=== PATIENT | female | born 1980 | race African-American/Black ===

== ENCOUNTER 2017-04-29 06:19 | Inpatient (IN) ==
[2017-04-29] MEDS ORDERED: CITRIC ACID/SODIUM CITRATE 30 ML UDCUP PO ONE (06:34)
[2017-04-29] MEDS ORDERED: FAMOTIDINE 20 MG/2 ML VIAL IV ONE (06:34)
[2017-04-29] MEDS ORDERED: cefOXitin 2,000 MG in SYRINGE 1 EACH IV ONE (06:36)
[2017-04-29 07:01] LABS: Basophils % 0.2 % (0.0-0.8); Eosinophils # 0.1 10*3/uL (0.0-0.87); Eosinophils % 0.7 % (0.00-10.9); Hemoglobin 11.2 GM/DL (12.0-16.0); Immature Granulocytes % 0.3 %; Immature Granulocytes Absolute 0.03 #; Lymphocytes # 3.6 10*3/uL (1.4-4.0); Lymphocytes % 35.7 % (21.3-54.2); Mean Corpuscular HGB Conc 31.1 GM/DL (32-36); Mean Corpuscular Hemoglobin 22 PG (27-34); Mean Corpuscular Volume 71.9 FL (87-102); Monocytes # 0.7 10*3/uL (0.11-0.8); Monocytes % 7.2 % (1.7-12.7); Neutrophils # 5.6 10*3/uL (1.4-7.4); Neutrophils % 55.9 % (38.7-73.9); Platelet Count 205 T/CUMM (130-400); Red Blood Count 5.01 MC/CUMM (3.8-5.5); Red Cell Distribution Width 15.7 % (9.3-17.3)
[2017-04-29] MEDS: LACTATED RINGERS 1,000 ML IV SCH ×4 (07:08→23:00)
[2017-04-29] MEDS ORDERED: hydrOXYzine HCL 25 MG/1 ML VIAL IM PRN (07:10)
[2017-04-29] MEDS ORDERED: diphenhydrAMINE 50 MG/1 ML VIAL IV PRN (07:10)
[2017-04-29] MEDS ORDERED: ePHEDrine 50 MG/ML AMP IV PRN (07:10)
[2017-04-29] MEDS ORDERED: OXYTOCIN/LR 20 UNIT/1,000 ML BAG IV ONE ×4 (07:12→11:13)
[2017-04-29 07:19] LABS: Hypochromasia 1+; Microcytosis 1+; Ovalocytes Few; Platelet Estimate Normal; Tear Drop Cells Slight
[2017-04-29] MEDS ORDERED: ONDANSETRON 4 MG/2 ML VIAL ONE ×2 (09:29→10:42)
[2017-04-29] MEDS ORDERED: GLYCOPYRROLATE 0.4 MG/2 ML VIAL ONE (09:29)
[2017-04-29] MEDS ORDERED: MORPHINE 10 MG/10 ML VIAL ONE (09:32)
[2017-04-29] MEDS ORDERED: ONDANSETRON 4 MG/2 ML VIAL IV PRN ×2 (10:48→11:13)
[2017-04-29] MEDS ORDERED: ACETAMINOPHEN 325 MG TABLET PO PRN (11:13)
[2017-04-29] MEDS ORDERED: IBUPROFEN 800 MG TABLET PO PRN (11:13)
[2017-04-29 11:47] LABS: Apearance,Urine CLEAR (Clear); Bilirubin,Urine Negative (Negative); Blood, Urine Negative (Negative); Glucose,Urine (UA) Negative (Negative); Ketones,Urine Negative (Negative); Mucus,Urine Occasional /LPF (Occasional); Nitrite,Urine Negative (Negative); Protein,Urine Negative; Squamous Epithelial Cell,Urine Occasional /HPF (0-10); Urine Color Straw (Yellow); Urine Urobilinogen < 2.0 EU/DL (0.2-1.0); WBC,Urine <1 /HPF (0-6)
[2017-04-29] MEDS ORDERED: RHO(D) IMMUNE GLOBULIN 300 MCG SYRINGE IM ONE (12:00)
[2017-04-29] MEDS ORDERED: PROMETHAZINE 25 MG/1 ML VIAL IM PRN (12:52)
[2017-04-29] MEDS: ceFAZolin 1,000 MG in SYRINGE 1 EACH IV SCH (16:25)
[2017-04-29 17:12] LABS: Basophils % 0.1 % (0.0-0.8); Eosinophils % 0.3 % (0.00-10.9); Hematocrit 30.4 VOL% (35.7-47.0); Hemoglobin 9.6 GM/DL (12.0-16.0); Immature Granulocytes % 0.4 %; Immature Granulocytes Absolute 0.05 #; Lymphocytes # 2.1 10*3/uL (1.4-4.0); Lymphocytes % 18.6 % (21.3-54.2); Mean Corpuscular HGB Conc 31.6 GM/DL (32-36); Mean Corpuscular Hemoglobin 23 PG (27-34); Mean Corpuscular Volume 71.4 FL (87-102); Monocytes # 0.8 10*3/uL (0.11-0.8); Monocytes % 6.8 % (1.7-12.7); Neutrophils # 8.3 10*3/uL (1.4-7.4); Neutrophils % 73.8 % (38.7-73.9); Platelet Count 235 T/CUMM (130-400); Red Blood Count 4.26 MC/CUMM (3.8-5.5); Red Cell Distribution Width 15.4 % (9.3-17.3); White Blood Count 11.2 T/CUMM (4-12)
[2017-04-30] MEDS: ceFAZolin 1,000 MG in SYRINGE 1 EACH IV SCH (00:45)
[2017-04-30] MEDS ORDERED: ceFAZolin 1,000 MG in SYRINGE 1 EACH IV SCH (01:00)
[2017-04-30 05:49] LABS: Basophils % 0.1 % (0.0-0.8); Eosinophils # 0.1 10*3/uL (0.0-0.87); Eosinophils % 1.1 % (0.00-10.9); Hematocrit 29.1 VOL% (35.7-47.0); Hemoglobin 9.4 GM/DL (12.0-16.0); Immature Granulocytes % 0.4 %; Immature Granulocytes Absolute 0.05 #; Lymphocytes # 1.9 10*3/uL (1.4-4.0); Lymphocytes % 16.8 % (21.3-54.2); Mean Corpuscular HGB Conc 32.3 GM/DL (32-36); Mean Corpuscular Hemoglobin 23 PG (27-34); Mean Corpuscular Volume 70.6 FL (87-102); Monocytes % 8.2 % (1.7-12.7); Neutrophils # 8.5 10*3/uL (1.4-7.4); Neutrophils % 73.4 % (38.7-73.9); Platelet Count 231 T/CUMM (130-400); Red Blood Count 4.12 MC/CUMM (3.8-5.5); Red Cell Distribution Width 15.6 % (9.3-17.3); White Blood Count 11.5 T/CUMM (4-12)
[2017-04-30 06:36] LABS: Hypochromasia 1+; Lymphocytes 15 % (20-55); Ovalocytes Slight; Platelet Estimate Adequate; Segmented Neutrophils 80 % (50-85); Total Cells Counted 100
[2017-04-30 06:37] LABS: Giant Platelets Few; Microcytosis Slight
[2017-04-30] MEDS: DOCUSATE SODIUM 100 MG CAPSULE PO SCH ×3 (07:06→21:47)
[2017-04-30] MEDS: LACTATED RINGERS 1,000 ML IV SCH (07:09)
[2017-04-30] MEDS: KETOROLAC 30 MG/1 ML VIAL IV SCH ×4 (09:31→21:48)
[2017-04-30] MEDS: METHYLDOPA 250 MG TABLET PO SCH ×2 (09:32→21:48)
[2017-04-30] MEDS: MULTIVITAMIN (PRENATAL) TABLET PO SCH (09:55)
[2017-04-30] MEDS: MAGNESIUM HYDROXIDE SUSP 30 ML UDCUP PO PRN ×2 (09:55→21:48)
[2017-04-30] MEDS: FERROUS SULFATE 325 MG TABLET PO SCH (21:47)
[2017-04-30] MEDS: SIMETHICONE CHEW 80 MG TABLET PO PRN (21:48)
[2017-05-01] MEDS: KETOROLAC 30 MG/1 ML VIAL IV SCH (04:20)
[2017-05-01] MEDS ORDERED: METHYLDOPA 250 MG TABLET PO SCH ×3 (04:30→21:00)
[2017-05-01] MEDS: MAGNESIUM HYDROXIDE SUSP 30 ML UDCUP PO PRN ×2 (09:13→22:35)
[2017-05-01] MEDS: MULTIVITAMIN (PRENATAL) TABLET PO SCH (09:13)
[2017-05-01] MEDS: DOCUSATE SODIUM 100 MG CAPSULE PO SCH ×2 (09:13→22:35)
[2017-05-01] MEDS: FERROUS SULFATE 325 MG TABLET PO SCH ×2 (09:13→22:35)
[2017-05-01] MEDS ORDERED: hydroCHLOROthiazide 25 MG TABLET PO PRN (09:30)
[2017-05-01] MEDS: SIMETHICONE CHEW 80 MG TABLET PO PRN (22:35)
[2017-05-02] MEDS ORDERED: METHYLDOPA 250 MG TABLET PO SCH (04:00)
[2017-05-02 07:46] VITALS: BP 152/97
[2017-05-02] MEDS: FERROUS SULFATE 325 MG TABLET PO SCH (08:40)
[2017-05-02] MEDS: DOCUSATE SODIUM 100 MG CAPSULE PO SCH (08:40)
[2017-05-02] MEDS: MULTIVITAMIN (PRENATAL) TABLET PO SCH (08:40)
[2017-05-02] MEDS ORDERED: hydroCHLOROthiazide 25 MG TABLET PO SCH (09:00)
[2017-05-02] MEDS ORDERED: LABETALOL 200 MG TABLET PO SCH (09:30)
[2017-05-02] MEDS: SIMETHICONE CHEW 80 MG TABLET PO PRN (12:19)
[2017-05-02] MEDS: MAGNESIUM HYDROXIDE SUSP 30 ML UDCUP PO PRN (12:19)
[2017-05-02] MEDS ORDERED: DIPH/TET/ACEL PERT BOOSTER VACCINE 0.5 ML VIAL IM ONE (13:28)
== END 2017-05-02 15:40 | disposition home or self-care (01) | DRG 540 ==
LOC: N.LDOUT 06:19 → N.LD 06:22 → N.OB 12:03
PROVIDERS: ADMIT Obstetrics & Gynecology; ATTEND Obstetrics & Gynecology
PROC: LDCSECT (ICD-10-PCS; 2017-04-29 11:25)